=== PATIENT | female | born 2000 | race Caucasian/White ===

== ENCOUNTER 2022-03-25 22:19 | Emergency (ER) | payer OTHER ==
[~2022-03-25] VITALS: Ht 157.5 cm; Wt 127.5 kg
[2022-03-25 23:07] VITALS: BP 134/78
--- NOTE | 2022-03-25 23:13 | NUR ---
ER MD EXAMINING PT IN TRIAGE
[2022-03-25] MEDS ORDERED: IBUPROFEN 800 MG TAB PO ONE (23:40)
[2022-03-26] MEDS ORDERED: IBUPROFEN 800 MG TAB ONE (01:01)
[2022-03-26] MEDS ORDERED: IBUP-2213 PO (01:17)
== END 2022-03-26 02:28 | disposition home or self-care (01) ==
LOC: MED 22:19
DX: S93.402A Sprain of unspecified ligament of left ankle, initial encounter (principal); Z79.1 Long term (current) use of non-steroidal anti-inflammatories (NSAID); X50.1XXA Overexertion from prolonged static or awkward postures, initial encounter; Y93.89 Activity, other specified; Y92.89 Other specified places as the place of occurrence of the external cause; Y99.8 Other external cause status
CPT/HCPCS: 73610; 99283